=== PATIENT | female | born 2000 | race Caucasian/White ===

== ENCOUNTER 2025-09-17 13:08 | Outpatient (CLI) | payer OTHER, SELFPAY ==
[2025-09-21 04:06] LABS: Chlamydia By Nucleic Acid AMP Negative (Negative); Gonococcus By Nucleic Acid AMP Negative (Negative)
== END 2025-09-17 23:59 | disposition home or self-care (01) ==
LOC: LABSPEC 13:10
PROVIDERS: Referring Provider Student in an Organized Health Care Education/Training Program; Visit Provider Student in an Organized Health Care Education/Training Program
DX: O09.90 Supervision of high risk pregnancy, unspecified, unspecified trimester (principal); Z3A.00 Weeks of gestation of pregnancy not specified; Z12.4 Encounter for screening for malignant neoplasm of cervix
CPT/HCPCS: 87086; 87088; 87491; 87591; 88175; G0145